=== PATIENT | male | born 1930 | race Caucasian/White ===

== ENCOUNTER 2018-06-02 11:43 | Day surgery (SDC) | payer MEDICARE, OTHER ==
[2018-06-02] VITALS (8 sets, daily range): BP systolic 139–151; BP diastolic 55–94
[~2018-06-02] VITALS: Ht 182.9 cm; Wt 99.9 kg
[~2018-06-02 11:43] MED LIST: ASPI-100; ATOR40TA PO; GLIM4TAB79 PO; SITA1TAB10 PO; TELM40TA4 PO; TELM80TA5 PO
[2018-06-02] MEDS ORDERED: normal saline 1000ml 1,000 ML IV SCH (12:30)
[2018-06-02] MEDS ORDERED: diphenhydrAMINE 25mg capsule PO PRN (12:30)
[2018-06-02 12:50] LABS: BASOPHILS # (AUTO) 0.1 X10'3 (0-0.2); BASOPHILS % (AUTO) 0.7 % (0-1); EOSINOPHILS # (AUTO) 0.3 X10'3 (0-0.9); EOSINOPHILS % (AUTO) 3.5 % (0-6); LYMPHOCYTES # (AUTO) 1.4 X10'3 (1.1-4.8); LYMPHOCYTES % (AUTO) 18.5 % (21-51); MEAN CORPUSCULAR HEMOGLOBIN 31.3 PG (27.0-31.0); MEAN CORPUSCULAR HGB CONC 33.4 % (33.0-36.5); MEAN CORPUSCULAR VOLUME 93.7 FL (78-98); MEAN PLATELET VOLUME 9.1 FL (7.4-10.4); MONOCYTES # (AUTO) 0.7 X10'3 (0-0.9); MONOCYTES % (AUTO) 9.5 % (2-12); NEUTROPHILS % (AUTO) 67.8 % (42-75); PRE OP HEMATOCRIT 40.9 % (42.0-52.0); PRE OP HEMOGLOBIN 13.7 g/dL (14.0-17.9); PRE OP PLATELET COUNT 149 X10'3 (140-440); RED BLOOD COUNT 4.37 X10'6 (4.70-6.10); RED CELL DISTRIBUTION WIDTH 14.4 % (11.5-14.5)
[2018-06-02] MEDS ORDERED: UBID100C45 PO (12:51)
[2018-06-02] MEDS ORDERED: NATE120T PO (12:51)
[2018-06-02] MEDS ORDERED: PRAV80TA3 PO (12:51)
[2018-06-02] MEDS ORDERED: INSU100V9 SQ (12:51)
[2018-06-02] MEDS ORDERED: HYDR12.5 PO (12:51)
[2018-06-02] MEDS ORDERED: sod bicarbonate 150mEq in D5W 1,150 ML IV ONE (13:00)
[2018-06-02 13:09] LABS: ALBUMIN 3.3 G/DL (3.4-5.0); ANION GAP 9 (8-16); BLOOD UREA NITROGEN 38 MG/DL (7-18); BUN/CREATININE RATIO 16.3 (5.4-32.0); CALCIUM 9.1 MG/DL (8.5-10.1); CHLORIDE 102 MMOL/L (99-107); CREATININE 2.33 MG/DL (0.60-1.10); GLUCOSE 215 MG/DL (70-104); MAGNESIUM 1.7 MG/DL (1.5-2.4); SODIUM 138 MMOL/L (135-145); TOTAL CARBON DIOXIDE 27.2 MMOL/L (24-32); eGFR 27 ML/MIN
[2018-06-02 13:16] LABS: PROTHROMBIN TIME 10.6 SECONDS (9.0-12.0)
[2018-06-02] MEDS ORDERED: fentaNYL/PF 50MCG/1 ML 2ML syringe ONE (15:37)
[2018-06-02] MEDS ORDERED: midazolam 2 mg/2 ml injection ONE (15:37)
[2018-06-02] MEDS ORDERED: iohexol 350MG/ML 100ml bottle IV ONE (15:38)
[2018-06-02] MEDS ORDERED: LIDOcaine 1% (10mg/ml)w/preservative injection 20ml MDV ONE (15:38)
[2018-06-02] MEDS ORDERED: iohexol 350 MG/ML 50ML vial IV ONE (15:38)
== END 2018-06-02 19:00 | disposition home or self-care (01) ==
LOC: SSTAY O 11:43
PROVIDERS: ATTEND Internal Medicine Cardiovascular Disease
DX: I25.810 Atherosclerosis of coronary artery bypass graft(s) without angina pectoris (principal); I10 Essential (primary) hypertension; E78.5 Hyperlipidemia, unspecified; E11.9 Type 2 diabetes mellitus without complications; E89.0 Postprocedural hypothyroidism; F10.21 Alcohol dependence, in remission; Z91.010 Allergy to peanuts; Z95.1 Presence of aortocoronary bypass graft; Z86.73 Personal history of transient ischemic attack (TIA), and cerebral infarction without residual deficits; Z90.79 Acquired absence of other genital organ(s); Z85.46 Personal history of malignant neoplasm of prostate; Z79.4 Long term (current) use of insulin; Z87.891 Personal history of nicotine dependence; Z90.49 Acquired absence of other specified parts of digestive tract; Z79.899 Other long term (current) drug therapy; Z98.890 Other specified postprocedural states; Z88.8 Allergy status to other drugs, medicaments and biological substances
CPT/HCPCS: 36415; 80048; 82948; 83735; 85025; 85610; 93005; 93459; 99152; 99153; A6257; C1760; J1644; J2001; J2250; J3010; J7030; Q0163; Q9967; A4620; C1769; C1894

== ENCOUNTER 2019-10-12 08:51 | Emergency (ER) | payer MEDICARE, OTHER ==
[~2019-10-12] VITALS: Ht 185.4 cm; Wt 105.0 kg
[~2019-10-12 08:51] MED LIST changes: -ASPI-100; -ATOR40TA PO; -GLIM4TAB79 PO; +HYDR12.5 PO; +INSU100V9 SQ; +NATE120T PO; +PRAV80TA3 PO; -SITA1TAB10 PO; -TELM80TA5 PO; +UBID100C45 PO
--- NOTE | 2019-10-12 09:04 | NUR ---
md at bedside. MD denies need for calling poison control at this time. pt on heart monitor
--- NOTE | 2019-10-12 09:30 | NUR ---
assumed care of pt from Kassie CAMILO, pt is resting quietly on gurney, resp even and unlabored, skin p/w/d, GCS 15, alert and oriented x3
--- NOTE | 2019-10-12 10:33 | NUR ---
pt amb byself, steady gait to restroom, no c/o lightheadness, dizziness
[2019-10-12 11:02] VITALS: BP 164/62
== END 2019-10-12 11:04 | disposition home or self-care (01) ==
LOC: ER 08:51
DX: T46.1X1A Poisoning by calcium-channel blockers, accidental (unintentional), initial encounter (principal); R42 Dizziness and giddiness; E11.9 Type 2 diabetes mellitus without complications; Z95.1 Presence of aortocoronary bypass graft; Z88.8 Allergy status to other drugs, medicaments and biological substances; Z79.4 Long term (current) use of insulin; Z79.899 Other long term (current) drug therapy; Y92.89 Other specified places as the place of occurrence of the external cause
CPT/HCPCS: 93005; 99283